=== PATIENT | female | born 1970 | race Hispanic/Latino ===

== ENCOUNTER 2018-10-28 14:58 | Outpatient (CLI) | payer BC ==
--- NOTE | 2018-10-28 16:21 | MRI ---
MRI Upper Ext Jt Rt WO Con History: [M25.521 right elbow pain] Comparison: Radiographs October 07, 2018 Findings: Bones: No fracture. No malalignment. No osteochondral defect. No stress edema. Tendons: Biceps tendon is intact. Brachialis tendon is intact. No bicipital radial bursitis. Triceps tendon is normal. Low-grade partial tearing and tendinosis of the common extensor tendon. Vascular flow voids are maintained. Muscle signal and bulk is normal. Impression: Mild common extensor tendinosis and partial tearing.
== END 2018-10-28 14:59 | disposition home or self-care (01) ==
LOC: BICMRI 14:58
PROVIDERS: ATTEND Family Medicine
DX: M25.521 Pain in right elbow (principal); S53.401A Unspecified sprain of right elbow, initial encounter